=== PATIENT | male | born 2000 | race Two or more races ===

== ENCOUNTER 2021-05-21 13:11 | Emergency (ER) | payer OTHER ==
[~2021-05-21] VITALS: Ht 177.8 cm; Wt 61.7 kg
[2021-05-21] MEDS ORDERED: ZOVIRAX800 MG PO (15:50)
[2021-05-21] MEDS ORDERED: METHYLPREDNISOLO4 M1 PO (15:50)
== END 2021-05-21 16:06 | disposition home or self-care (01) ==
LOC: EMR PED 13:11
DX: J03.90 Acute tonsillitis, unspecified (principal); E86.0 Dehydration

== ENCOUNTER 2021-11-10 18:57 | Emergency (ER) | payer OTHER ==
[~2021-11-10] VITALS: Ht 177.8 cm; Wt 65.8 kg
[~2021-11-10 18:57] MED LIST: METHYLPREDNISOLO4 M1 PO; ZOVIRAX800 MG PO
== END 2021-11-10 21:27 | disposition home or self-care (01) ==
LOC: ER 18:57
DX: L40.8 Other psoriasis (principal); L29.9 Pruritus, unspecified

== ENCOUNTER 2021-12-08 17:58 | Emergency (ER) | payer OTHER ==
[~2021-12-08] VITALS: Ht 177.8 cm; Wt 65.8 kg
== END 2021-12-08 20:07 | disposition home or self-care (01) ==
LOC: ER 17:58
DX: B86 Scabies (principal)

== ENCOUNTER 2022-11-15 13:25 | Emergency (ER) | payer OTHER ==
[~2022-11-15] VITALS: Ht 167.6 cm; Wt 68.0 kg
[~2022-11-15 13:25] MED LIST changes: +SINGULAIR 10MG10 MG PO
== END 2022-11-15 18:12 | disposition home or self-care (01) ==
LOC: ER 13:25
DX: J10.1 Influenza due to other identified influenza virus with other respiratory manifestations (principal); Z20.822 Contact with and (suspected) exposure to COVID-19; J45.909 Unspecified asthma, uncomplicated; J32.8 Other chronic sinusitis

== ENCOUNTER 2023-04-14 16:04 | Emergency (ER) | payer OTHER ==
[~2023-04-14] VITALS: Ht 177.8 cm; Wt 65.3 kg
== END 2023-04-14 20:07 | disposition home or self-care (01) ==
LOC: ER 16:05
DX: L20.9 Atopic dermatitis, unspecified (principal); Z87.09 Personal history of other diseases of the respiratory system; Z91.018 Allergy to other foods

== ENCOUNTER 2024-02-18 22:53 | Emergency (ER) | payer OTHER ==
[~2024-02-18] VITALS: Ht 177.8 cm; Wt 67.6 kg
[2024-02-19] MEDS ORDERED: LIDOCAINE HCL 4% Topic SOLUTION MM STA (01:52)
[2024-02-19] MEDS ORDERED: ORASEP SPRAY30 ML MM (01:57)
== END 2024-02-19 02:13 ==
LOC: ER 22:55
DX: K12.0 Recurrent oral aphthae (principal); Z87.09 Personal history of other diseases of the respiratory system; Z91.018 Allergy to other foods

== ENCOUNTER 2024-05-31 07:03 | Emergency (ER) | payer OTHER ==
[~2024-05-31] VITALS: Ht 172.7 cm; Wt 67.1 kg
[~2024-05-31 07:03] MED LIST changes: +ORASEP SPRAY30 ML MM
[2024-05-31] MEDS ORDERED: MEDROLPACK PO (08:59)
[2024-05-31] MEDS ORDERED: CALAMINE SUSPE177 ML TOP (08:59)
[2024-05-31] MEDS ORDERED: BENADRYL ALLERG25 MG PO (08:59)
[2024-05-31] MEDS ORDERED: DIPHENHYDRAMINE HCL 50 MG/ML VIAL 1ML IV ONE (09:00)
[2024-05-31] MEDS ORDERED: METHYLPREDNISOLONE SOD SUCC 125 MG VIAL IM ONE (09:00)
[2024-05-31] MEDS ORDERED: ANTI-ITCH28 GM TOP (09:00)
[2024-05-31] MEDS ORDERED: DIPHENHYDRAMINE HCL 50 MG/ML VIAL 1ML ONE (09:13)
[2024-05-31] MEDS ORDERED: METHYLPREDNISOLONE SOD SUCC 125 MG VIAL ONE (09:13)
== END 2024-05-31 10:27 | disposition home or self-care (01) ==
LOC: ER 07:06
DX: R21 Rash and other nonspecific skin eruption (principal); L30.8 Other specified dermatitis; Z91.018 Allergy to other foods
CPT/HCPCS: 96365; 96372; 99282; J1200; J3490

== ENCOUNTER → 2025-03-01 | Emergency (ER) | payer OTHER ==
[~2025-03-01] VITALS: Ht 177.8 cm; Wt 69.4 kg
[~2025-03-01] MED LIST changes: +ANTI-ITCH28 GM TOP; +BENADRYL ALLERG25 MG PO; +CALAMINE SUSPE177 ML TOP; +CEFTRIAXONE SODIUM 1,000 MG VIAL IM ONE; +DEXAMETHASONE SODIUM PHOSPHATE 4 MG/ML VIAL IM ONE; +MEDROLPACK PO; +MUPIROCIN15 GM TOP
== END | disposition home or self-care (01) ==
LOC: ER 06:40
DX: L30.9 Dermatitis, unspecified (principal); Z91.018 Allergy to other foods